=== PATIENT | male | born 1965 | race Hispanic/Latino ===

== ENCOUNTER → 2023-09-11 | Outpatient (REF) | payer OTHER | LOC: MRI 09:34 | PROVIDERS: ATTEND Family Medicine | DX: S46.212A Strain of muscle, fascia and tendon of other parts of biceps, left arm, initial encounter (principal); M75.22 Bicipital tendinitis, left shoulder; S53.402A Unspecified sprain of left elbow, initial encounter; Z04.2 Encounter for examination and observation following work accident ==